=== PATIENT | female | born 1965 | race American Indian/Alaskan Native ===

== ENCOUNTER 2021-06-18 08:59 | Emergency (ER) | payer MEDICARE ==
[2021-06-18 09:17] VITALS: BP 94/57
--- NOTE | 2021-06-18 10:03 | Emergency Department Report ---
ED Lower Extremity HPI - General Chief Complaint: Extremity Injury, Lower Stated Complaint: FOOT PAIN(NOT SURE IF BROKEN) Source: patient Mode of arrival: Wheelchair Limitations: No Limitations - History of Present Illness Initial Comments: The patient was evaluated in the emergency department for symptoms described in the history of present illness. He/she was evaluated in the context of the global COVID-19 pandemic, which necessitated consideration that the patient might be at risk for infection with the virus that causes COVID-19. Institutional protocols and algorithms that pertain to the evaluation of patients at risk for COVID-19 are in a state of rapid change based on information released by regulatory bodies including the CDC and federal and state organizations. These policies and algorithms were followed during the patient's care in the emergency department. Please note that these policies, procedures and recommendations changed on a rapid basis. 55-year-old -[place] female presents to the emergency room complaining of left foot injury and pain. Patient states that she was avoiding stepping on a frog when she twisted her left foot. Patient states the pain is worse when she walks on it. Patient states she does not have any pain when she moves her toes but only with bearing weight. MD Complaint: foot injury - Related Data Allergies Allergy/AdvReac Type Severity Reaction Status Date / Time No Known Allergies Allergy Unverified 06/18/21 09:13 ED Review of Systems ROS: Stated complaint: FOOT PAIN(NOT SURE IF BROKEN) Other details as noted in HPI ED Past Medical Hx - Past Medical History Previous Medical History?: Yes Hx Renal Disease: Yes (Dialysis MWF) - Surgical History Past Surgical History?: Yes Additional Surgical History: gastric bypass 2018 ED Physical Exam - General Limitations: No Limitations ED Course Vital Signs 06/18/21 09:16 Temperature 98.3 F Pulse Rate 93 H Respiratory 18 Rate Blood Pressure 94/57 O2 Sat by Pulse 96 Oximetry ED Lower Extremity MDM - Radiology Data Radiology results: report reviewed [facility] [address] [place] [address] XRay Report Signed Patient: ELIDIA BURROWS MR#: [id number] : 1965 Acct:[id number] Age/Sex: 55 / F ADM Date: 06/18/21 Loc: ED Attending Dr: Ordering Physician: EZRA ABREU Date of Service: 06/18/21 Procedure(s): XR foot 3+V LT Accession Number(s): [id number] cc: EZRA ABREU Fluoro Time In Minutes: LEFT FOOT 3 VIEWS INDICATION: injury. COMPARISON: None. IMPRESSION: Borderline to mild osteopenia is suspected. There is a mild hallux valgus deformity. No acute osseous abnormality or erosive joint pathology is appreciated. Moderate plantar spur is noted. Signer Name: Hung Franks Jr, MD Signed: 06/18/2021 10:23 AM Workstation Name: [id number] Transcribed By: TTR Dictated By: HUNG FRANKS JR, MD Electronically Authenticated By: HUNG FRANKS JR, MD Signed Date/Time: 06/18/21 1023 DD/ 1022 TD/TT: Print Cancel - Medical Decision Making 55-year-old -[place] female presents to the emergency room complaining of left foot injury and pain. Patient states that she was avoiding stepping on a frog when she twisted her left foot. Patient states the pain is worse when she walks on it. Patient states she does not have any pain when she moves her toes but only with bearing weight. X-ray of left foot shows no acute abnormality bone erosion. Recommend postop boot and to follow-up with your primary care provider or orthopedist Tylenol or ibuprofen as needed for pain management Critical care attestation.: If time is entered above; I have spent that time in minutes in the direct care of this critically ill patient, excluding procedure time. ED Disposition Clinical Impression: Left foot pain, Injury of left foot Disposition: 01 HOME / SELF CARE / HOMELESS Is pt being admited?: No Does the pt Need Aspirin: No Condition: Stable Instructions: Foot Pain Additional Instructions: X-ray of left foot shows no acute abnormality bone erosion. Recommend postop boot and to follow-up with your primary care provider or orthopedist Tylenol or ibuprofen as needed for pain management Referrals: BOB MATUTE MD [Primary Care Provider] - 3-5 Days DAVE ZIMMERMAN MD [Staff Physician] - 3-5 Days Forms: Work/School Release Form(ED) Time of Disposition: 12:13
--- NOTE | 2021-06-18 10:28 | XRay Report ---
LEFT FOOT 3 VIEWS INDICATION: injury. COMPARISON: None. IMPRESSION: Borderline to mild osteopenia is suspected. There is a mild hallux valgus deformity. No acute osseous abnormality or erosive joint pathology is appreciated. Moderate plantar spur is noted. Signer Name: Hung Franks Jr, MD Signed: 06/18/2021 10:23 AM Workstation Name: [id number]
== END 2021-06-18 13:21 | disposition home or self-care (01) ==
LOC: ED 08:59
DX: S99.922A Unspecified injury of left foot, initial encounter (principal); Z98.890 Other specified postprocedural states; X58.XXXA Exposure to other specified factors, initial encounter; Y93.89 Activity, other specified; Y92.89 Other specified places as the place of occurrence of the external cause; Y99.8 Other external cause status
CPT/HCPCS: 99283

== ENCOUNTER 2021-08-29 00:53 | Emergency (ER) | payer OTHER, MEDICARE ==
--- NOTE | 2021-08-29 03:02 | Emergency Department Report ---
ED Back Pain/Injury HPI - General Chief Complaint: Back Pain/Injury Stated Complaint: LOWER BACK PAIN Source: patient Limitations: No Limitations - History of Present Illness Initial Comments: 35-year-old female with end-stage renal disease requiring dialysis last Monday presents emerged department complaining of left back pain worse with palpation and certain range of motion and sharp crampy type fashion. She reports no fever, chills, sweats. No hemoptysis no hematemesis hematochezia she is an uric at this time but unsure of the cause of the pain she is not tried any [id number] analgesic medications at this present time. Radiation: none Severity: mild, moderate Quality: dull Consistency: constant Improves With: none Worsens With: movement Associated Symptoms: denies: weakness, chest pain, difficulty walking, fever/chills, constipation, abdominal pain, loss of appetite, rash, seizure, shortness of breath - Related Data Previous Rx's Medication Instructions Recorded Last Taken Type Acetaminophen/Codeine [Tylenol 1 tab PO Q6H PRN #10 tab 08/29/21 Unknown Rx /Codeine # 3 tab] methOCARBAMOL [Robaxin TAB] 750 mg PO Q8H PRN #14 tablet 08/29/21 Unknown Rx Allergies Allergy/AdvReac Type Severity Reaction Status Date / Time No Known Allergies Allergy Unverified 06/18/21 09:13 ED Review of Systems ROS: Stated complaint: LOWER BACK PAIN Other details as noted in HPI Comment: All other systems reviewed and negative ED Past Medical Hx - Past Medical History Previous Medical History?: Yes Hx Renal Disease: Yes (Dialysis MWF) - Surgical History Additional Surgical History: gastric bypass 2017 - Medications Home Medications: Home Medications Medication Instructions Recorded Confirmed Last Taken Type Acetaminophen/Codeine [Tylenol 1 tab PO Q6H PRN #10 tab 08/29/21 Unknown Rx /Codeine # 3 tab] methOCARBAMOL [Robaxin TAB] 750 mg PO Q8H PRN #14 tablet 08/29/21 Unknown Rx ED Physical Exam - General Limitations: No Limitations General appearance: alert, in no apparent distress - Head Head exam: Present: atraumatic, normocephalic - Eye Eye exam: Present: normal appearance, PERRL, EOMI Pupils: Present: normal accommodation - ENT ENT exam: Present: normal exam, normal orophraynx, mucous membranes moist, TM's normal bilaterally - Neck Neck exam: Present: normal inspection - Respiratory Respiratory exam: Present: normal lung sounds bilaterally. Absent: respiratory distress, wheezes, chest wall tenderness, accessory muscle use, decreased breath sounds - Cardiovascular Cardiovascular Exam: Present: regular rate, normal rhythm. Absent: systolic murmur, diastolic murmur, rubs, gallop - GI/Abdominal GI/Abdominal exam: Present: soft, normal bowel sounds - Extremities Exam Extremities exam: Present: normal inspection - Back Exam Back exam: Present: normal inspection, tenderness (Sacroiliac region with palpation. Paraspinous muscle tenderness as well full range of motion). Absent: CVA tenderness (R), CVA tenderness (L) - Neurological Exam Neurological exam: Present: alert, oriented X3, CN II-XII intact, normal gait - Psychiatric Psychiatric exam: Present: normal affect, normal mood - Skin Skin exam: Present: warm, dry, intact, normal color. Absent: rash, cyanosis, diaphoretic ED Course Vital Signs 08/29/21 02:00 Temperature 98.2 F Pulse Rate 71 Respiratory 16 Rate Blood Pressure 114/64 [Right] O2 Sat by Pulse 100 Oximetry ED Medical Decision Making - EKG Data Interpretation: no acute changes - Radiology Data Radiology results: report reviewed [facility] [address] [place] [address] XRay Report Signed Patient: ELIDIA GILMORE MR#: [id number] : 1965 Acct:[id number] Age/Sex: 55 / F ADM Date: 08/29/21 Loc: ED Attending Dr: Ordering Physician: EZRA SANTOS Date of Service: 08/29/21 Procedure(s): XR spine lumbosacral 2-3V Accession Number(s): [id number] cc: EZRA SANTOS Fluoro Time In Minutes: LUMBAR SPINE 3 VIEWS INDICATION / CLINICAL INFORMATION: back pain left SI region COMPARISON: None available. FINDINGS: BONES / JOINT(S): No fracture. Mild grade 1 anterolisthesis of L4 on L5. Underlying osteopenia. Mild DDD L4-L5. SOFT TISSUES: Bilateral benign-appearing dystrophic calcification. Calcified fibroid. Left iliac venous stent. ADDITIONAL FINDINGS: None. Signer Name: Jv Arnett MD Signed: 08/29/2021 3:51 AM Workstation Name: [id number] Transcribed By: ES Dictated By: Jv Arnett MD Electronically Authenticated By: Jv Arnett MD Signed Date/Time: 08/29/21350 DD/ 8 TD/TT: - Medical Decision Making Pt presents the emergency department complaining of back pain most consistent with musculoskeletal nonemergent back Pain Most Consistent with Strain/Contusion. Differential Diagnosis Includes Lumbar Go Versus Musculoskeletal Spasm, Strain Versus Sciatica. No Back Pain Red Flags on History or Physical. Presentation Not Consistent with Malignancy, Fracture, Cauda Equina, Abdominal Aortic Aneurysm, Viscus Perforation, Pulmonary Embolism, Renal Colic, Pyelonephritis. Patient reports no B symptoms, trauma trauma, incontinence, saddle anesthesia, distal weakness, urinary symptoms and is a febrile. Critical care attestation.: If time is entered above; I have spent that time in minutes in the direct care of this critically ill patient, excluding procedure time. ED Disposition Clinical Impression: Degenerative disc disease, lumbar, Lumbago Disposition: 01 HOME / SELF CARE / HOMELESS Is pt being admited?: No Does the pt Need Aspirin: No Condition: Stable Instructions: Degenerative Disk Disease, Back Exercises, [id number], What You Need to Know About Chronic Back Pain Additional Instructions: You were evaluated emergency department today for chest pain. Your evaluation has shown no medicals conditions requiring emergent intervention at this time, however recommend that you follow-up with your primary care physician or your component lab tech soon as possible for further testing as an outpatient. Please schedule an appointment for follow-up with your primary care physician as soon as possible. Return to emergency department if you expands worsening uncontrolled chest pain, shortness of breath, lightheadedness, feeling faint, nausea, vomiting or any other concerning symptoms. Prescriptions: methOCARBAMOL [Robaxin TAB] 750 mg PO Q8H PRN #14 tablet PRN Reason: back pain Acetaminophen/Codeine [Tylenol /Codeine # 3 tab] 1 tab PO Q6H PRN #10 tab PRN Reason: Pain, Moderate (4-6) Referrals: DR. CHRISTY [Other] - 3-5 Days [facility] [Provider Group] - 3-5 Days
--- NOTE | 2021-08-29 03:55 | XRay Report ---
LUMBAR SPINE 3 VIEWS INDICATION / CLINICAL INFORMATION: back pain left SI region COMPARISON: None available. FINDINGS: BONES / JOINT(S): No fracture. Mild grade 1 anterolisthesis of L4 on L5. Underlying osteopenia. Mild DDD L4-L5. SOFT TISSUES: Bilateral benign-appearing dystrophic calcification. Calcified fibroid. Left iliac veno us stent. ADDITIONAL FINDINGS: None. Signer Name: Jv Arnett MD Signed: 08/29/2021 3:51 AM Workstation Name: [id number]
[2021-08-29] MEDS ORDERED: HYDROcodone/ACETAMINOPHEN 5-325 MG TAB PO STA (04:33)
[2021-08-29 05:41] VITALS: BP 109/73
== END 2021-08-29 05:42 | disposition home or self-care (01) ==
LOC: ED 00:53
DX: M51.36 Other intervertebral disc degeneration, lumbar region (principal)
CPT/HCPCS: 72100; 99283